=== PATIENT | male | born 1960 | race Caucasian/White ===

== ENCOUNTER 2024-07-11 07:52 | Day surgery (SDC) | payer BC ==
[2024-07-11] MEDS ORDERED: Lidocaine 2% 5 ML SDV ONE (08:23)
[2024-07-11] MEDS ORDERED: propofoL 500 MG/50 ML 50 ML ONE (08:23)
[2024-07-11] MEDS: Lactated Ringers 1,000 ML IV SCH (08:31)
[2024-07-11] MEDS ORDERED: Phenylephrine HCl In 0.9% NaCl 1 MG/10 ML Syringe ONE (09:14)
[2024-07-11] MEDS ORDERED: ePHEDrine 50 MG/ML SDV ONE (09:31)
[2024-07-11] MEDS ORDERED: Propofol 200 MG/20 ML SDV ONE (09:32)
[2024-07-11] MEDS ORDERED: Lactated Ringers 1,000 ML IV SCH (10:00)
== END 2024-07-11 10:40 | disposition home or self-care (01) ==
LOC: MW.SDS 07:52
PROVIDERS: ATTEND Surgery
DX: Z12.11 Encounter for screening for malignant neoplasm of colon (principal); K62.1 Rectal polyp; R19.5 Other fecal abnormalities; K57.30 Diverticulosis of large intestine without perforation or abscess without bleeding; I10 Essential (primary) hypertension; E78.00 Pure hypercholesterolemia, unspecified; F17.210 Nicotine dependence, cigarettes, uncomplicated; Z79.899 Other long term (current) drug therapy
CPT/HCPCS: 45380; J2371; J2704; J7120; 00811; J3490